=== PATIENT | male | born 1965 | race Caucasian/White ===

== ENCOUNTER → 2017-03-30 | Outpatient (CLI) | payer OTHER ==
[~2017-03-30] MED LIST: ASPI81TA28 PO; BUPR-79 PO; BUSP15TA70 PO; CLOP1TAB15 PO; DIPH25TA24 PO; DOCU100C31 PO; LISI5TAB3 PO; METO50TA7 PO; PANT40TA PO; SIMV80TA5 PO
== END | disposition home or self-care (01) ==
LOC: C.LABSPEC 17:12
PROVIDERS: ATTEND Urology
DX: N40.1 Benign prostatic hyperplasia with lower urinary tract symptoms (principal); N30.00 Acute cystitis without hematuria